=== PATIENT | female | born 1940 | race Caucasian/White ===

== ENCOUNTER 2019-03-12 16:52 | Inpatient (IN) | payer MEDICARE, OTHER ==
[~2019-03-12] VITALS: Ht 165.1 cm; Wt 68.9 kg
--- NOTE | 2019-03-12 17:00 | NUR ---
PT PRESENTED TO THE ER WITH A C/O LEFT SIDED CHEST PRESSURE. PT IS AA&O X4. PT'S IS AT THE BEDSIDE.
[2019-03-12] MEDS ORDERED: ASPIRIN 81 MG TAB.CHEW PO ONE (17:30)
[2019-03-12] MEDS ORDERED: LORAZEPAM 0.5 MG TABLET PO ONE (17:30)
[2019-03-12] MEDS ORDERED: KETOROLAC TROMETHAMINE INJ 30 MG/ML VIAL IV ONE (17:30)
--- NOTE | 2019-03-12 17:37 | NUR ---
CALLED FOR BED, TURNED IN MOVE SHEET
[2019-03-12] MEDS ORDERED: KETOROLAC TROMETHAMINE 15 MG/ML VIAL ONE (17:50)
--- NOTE | 2019-03-12 17:50 | NUR ---
PT REFUSED ALL MEDICATION AT THIS TIME. PT DENIES CP AT THIS TIME. IS AWARE.
[2019-03-12] MEDS ORDERED: ASPIRIN 81 MG TAB.CHEW ONE (17:51)
[2019-03-12] MEDS ORDERED: LORAZEPAM 0.5 MG TABLET ONE (17:51)
[2019-03-12] MEDS ORDERED: ASPI-1169 PO (18:10)
[2019-03-12] MEDS ORDERED: SIMV20TA6 PO (18:10)
[2019-03-12] MEDS ORDERED: CHOL200026 PO (18:10)
[2019-03-12] MEDS ORDERED: LEVO112T2 PO (18:10)
[2019-03-12 18:21] LABS: BASOPHILS # (AUTO) 0.1 /CMM (0.0-0.2); BASOPHILS % (AUTO) 1.2 % (0.0-2.0); EOSINOPHILS % (AUTO) 0.8 % (0.0-6.0); HEMATOCRIT 44 % (33-45); HEMOGLOBIN 14.6 g/dL (11.5-14.8); LYMPHOCYTES # (AUTO) 1.9 /CMM (0.8-4.8); LYMPHOCYTES % (AUTO) 23.5 % (20.0-44.0); MEAN CORPUSCULAR HGB CONC 33 g/dl (31.0-36.0); MEAN CORPUSCULAR VOLUME 87 fL (82-100); MONOCYTES # (AUTO) 0.5 /CMM (0.1-1.30); NEUTROPHILS # (AUTO) 5.7 /CMM (1.8-8.9); NEUTROPHILS % (AUTO) 68.5 % (43.0-81.0); PLATELET COUNT (AUTO) 200 /CMM (150-450); RED BLOOD CELL COUNT(AUTO) 5.04 MIL/uL (4.0-5.2); WHITE BLOOD COUNT (AUTO) 8.3 K/uL (4.3-11.0)
[2019-03-12 18:43] LABS: CALCIUM, SERUM 9.2 mg/dL (8.5-10.1); CARBON DIOXIDE 21 mmol/L (21-32); CHLORIDE 105 mmol/L (98-107); CREATININE 0.9 mg/dL (0.6-1.3); GLUCOSE 90 mg/dL (74-106); POTASSIUM 4.5 mmol/L (3.5-5.1); SODIUM SERUM 140 mmol/L (136-145); UREA NITROGEN, BLOOD 21 mg/dL (7-18)
[2019-03-12 18:49] LABS: ALANINE AMINOTRANSFERASE 22 U/L (12-78); ALBUMIN 3.9 g/dL (3.4-5.0); ALKALINE PHOSPHATASE 88 U/L (46-116); ASPARTATE AMINOTRANSFERASE 29 U/L (15-37); BILIRUBIN,TOTAL 0.5 mg/dL (0.2-1.0); LIPASE 102 U/L (73-393); TOTAL PROTEIN, SERUM 7.6 g/dL (6.4-8.2)
[2019-03-12] MEDS ORDERED: ZOLPIDEM TARTRATE 5 MG TABLET PO PRN ×2 (19:00→20:15)
[2019-03-12] MEDS ORDERED: MAGNESIUM HYDROXIDE 30 ML UDC PO PRN ×2 (19:00→20:15)
[2019-03-12] MEDS ORDERED: ONDANSETRON HCL/PF 4 MG/2 ML VIAL IVP PRN ×2 (19:00→20:15)
[2019-03-12] MEDS ORDERED: MORPHINE SULFATE INJ 2 MG/ML DISP.SYRIN IV PRN ×2 (19:00→20:15)
[2019-03-12] MEDS ORDERED: HYDROCODONE/APAP 5/325MG 1 EACH TABLET PO PRN ×2 (19:00→20:15)
[2019-03-12] MEDS ORDERED: Z GUARD REMEDY 2 OZ OINT TP PRN ×2 (19:00→20:15)
[2019-03-12] MEDS ORDERED: MAG HYDROX/AL HYDROX/SIMETH 30 ML UDC PO PRN ×2 (19:00→20:15)
[2019-03-12] MEDS ORDERED: ACETAMINOPHEN 325 MG TABLET PO PRN ×2 (19:00→20:15)
[2019-03-12] MEDS ORDERED: NITROGLYCERIN 0.4 MG/TAB BOTTLE SL PRN ×2 (19:00→20:15)
--- NOTE | 2019-03-12 19:29 | NUR ---
PT AMBULATED TO THE BATHROOM WITH A STEADY GAIT. VSS.
--- NOTE | 2019-03-12 19:33 | NUR ---
TELE BED 116-2
--- NOTE | 2019-03-12 19:57 | NUR ---
CALLED REPORT TO DECORATING CONSULTANT.
[2019-03-12 20:00] VITALS: BP 142/76
[2019-03-12 20:40] VITALS: BP 142/76
--- NOTE | 2019-03-12 21:00 | NUR ---
RN/TELE ADMISSION NOTES: RECEIVED PT. IN [facility] W/ FROM [facility] PT. IS A/O X 4. VERBALLY RESPONSIVE. ABLE TO MAKE NEEDS KNOWN. DENIES ANY C/O CHEST PAIN OR SOB AT PRESENT. ON TELE MONITOR W/ SR. PT. IS CONTINENT OF B/B. SKIN INTACT. HL ON RAC G 24 PATENT AND INTACT W/ NO S/S OF INFECTION/INFILTRATION NOTED. BED LOCKED AND IN LOW POSITION. CALL LIGHT W/ REACH. WILL CONTINUE TO MONITOR.
[2019-03-12] MEDS ORDERED: SIMVASTATIN 20 MG TABLET PO SCH ×2 (22:00)
[2019-03-13] VITALS: BP 114/51
[2019-03-13 04:00] VITALS: BP 114/59
[2019-03-13 06:22] LABS: BASOPHILS % (AUTO) 0.7 % (0.0-2.0); EOSINOPHILS % (AUTO) 2.9 % (0.0-6.0); HEMATOCRIT 39 % (33-45); HEMOGLOBIN 12.8 g/dL (11.5-14.8); LYMPHOCYTES # (AUTO) 2.2 /CMM (0.8-4.8); LYMPHOCYTES % (AUTO) 35.9 % (20.0-44.0); MEAN CORPUSCULAR HGB CONC 33 g/dl (31.0-36.0); MEAN CORPUSCULAR VOLUME 86 fL (82-100); MONOCYTES # (AUTO) 0.4 /CMM (0.1-1.30); MONOCYTES % (AUTO) 7.3 % (2.0-12.0); NEUTROPHILS # (AUTO) 3.2 /CMM (1.8-8.9); NEUTROPHILS % (AUTO) 53.2 % (43.0-81.0); PLATELET COUNT (AUTO) 184 /CMM (150-450); RED BLOOD CELL COUNT(AUTO) 4.51 MIL/uL (4.0-5.2)
[2019-03-13 06:58] LABS: B-TYPE NATRIURETIC PEPTIDE 67 PG/ML (0-125); CALCIUM, SERUM 8.7 mg/dL (8.5-10.1); CARBON DIOXIDE 26 mmol/L (21-32); CHLORIDE 108 mmol/L (98-107); CREATININE 0.9 mg/dL (0.6-1.3); GLUCOSE 93 mg/dL (74-106); PHOSPHORUS 3.8 mg/dL (2.5-4.9); POTASSIUM 3.7 mmol/L (3.5-5.1); SODIUM SERUM 142 mmol/L (136-145); UREA NITROGEN, BLOOD 25 mg/dL (7-18)
[2019-03-13 07:03] LABS: CHOLESTEROL 126 mg/dL (<200); HDL CHOLESTEROL 72 mg/dL (40-60); LDL 50 mg/dL (0-99); THYROID STIMULATING HORMONE 6.884 uIU/mL (0.358-3.74); TRIGLYCERIDES 69 mg/dL (30-150)
--- NOTE | 2019-03-13 07:10 | NUR ---
RN/TELE NOTES: REPORT GIVEN TO NEXT SHIFT NURSE FOR JAMILAH.
[2019-03-13] MEDS ORDERED: LEVOTHYROXINE SODIUM 112 MCG TABLET PO SCH ×2 (07:30)
--- NOTE | 2019-03-13 07:30 | NUR ---
ROAD WORKER AM NOTES: RECEIVED PT. IN BED, AAO X 4, ON ROOM AIR, NOT IN ANY DISTRESS, NO SOB, SINUS RHYTHM HR 88 ON MONITOR, DENIES ANY PAIN OR DISCOMFORT, RAC G 24 FLUSHES WELL, SITE CLEAR, AMBULATORY, BRP, SKIN INTACT. CARDIAC DIET, BED LOCKED AND IN LOW POSITION. CALL LIGHT W/ IN REACH. WILL CONTINUE TO MONITOR.
[2019-03-13 08:00] VITALS: BP 137/65
[2019-03-13] MEDS ORDERED: CHOLECALCIFEROL 1,000 UNIT TABLET (VIT D3) PO SCH ×2 (09:00)
[2019-03-13] MEDS ORDERED: ASPIRIN 81 MG TAB.CHEW PO SCH ×2 (09:00)
--- NOTE | 2019-03-13 09:30 | NUR ---
FUR IRONER NOTES DUE MEDS GIVEN
--- NOTE | 2019-03-13 09:42 | NUR ---
MS RN NOTES DC TELEMETRY PER DR. OCONNELL
--- NOTE | 2019-03-13 13:10 | NUR ---
RN NOTES PT DISCHARGED TO HOME TODAY PER MD IN STABLE CONDITION. PROVIDED DC INSTRUCTIONS, MED RECON LIST AND HEALTH TEACHINGS. PATIENT TO FOLLOW UP WITH PCP IN 1-2 WEEKS AND WILL MAKE OWN APPOINTMENT. RAC IV ACCESS REMOVED, PRESSURE APPLIED, NO BLEEDING, DRESSING IN PLACE. ALL BELONGINGS CHECKED AND RETURNED, ALL PAPER WORKS SIGNED, ACCOMPANIED BY LOUIS FOLEY TO LOBBY VIA WHEELCHAIR AND WILL GO HOME VIA PRIVATE CAR BY .
== END 2019-03-13 14:17 | disposition home or self-care (01) | DRG 880 ==
LOC: ER 16:52 → TELE1 20:26 → MEDSG1 03-13 11:28
DX: F41.9 Anxiety disorder, unspecified (principal); F43.9 Reaction to severe stress, unspecified; E78.5 Hyperlipidemia, unspecified; E03.9 Hypothyroidism, unspecified; I10 Essential (primary) hypertension; H81.09 Meniere's disease, unspecified ear; E55.9 Vitamin D deficiency, unspecified; Z87.891 Personal history of nicotine dependence; Z86.718 Personal history of other venous thrombosis and embolism; Z79.82 Long term (current) use of aspirin; Z79.899 Other long term (current) drug therapy
CPT/HCPCS: 36415; 71045-TC; 80048-TC; 80061-TC; 80076-TC; 83690-TC; 83735-TC; 83880; 84100-TC; 84443-TC; 84484-TC; 85025-TC; 87081-TC; G0378; J1885

== ENCOUNTER 2025-04-24 23:05 | Inpatient (IN) | payer BC, MEDICARE, OTHER ==
[~2025-04-24] VITALS: Ht 152.4 cm; Wt 63.5 kg
[~2025-04-24 23:05] MED LIST: ASPI-1169 PO; CHOL200026 PO; LEVO112T2 PO; SIMV-46 PO
[2025-04-24] MEDS ORDERED: ONDANSETRON HCL/PF 4 MG/2 ML VIAL ONE (23:26)
[2025-04-24] MEDS: IV NS 0.9% 500 ML BAG IV ONE (23:41)
[2025-04-24] MEDS: ONDANSETRON HCL/PF 4 MG/2 ML VIAL IVP ONE (23:41)
[2025-04-24 23:49] LABS: BASOPHILS % (AUTO) 0.6 % (0.0-2.0); EOSINOPHILS # (AUTO) 0.1 K/uL (0.0-0.7); EOSINOPHILS % (AUTO) 1.2 % (0.0-6.0); HEMATOCRIT 44 % (33-45); HEMOGLOBIN 14.5 g/dL (11.5-14.8); LYMPHOCYTES # (AUTO) 1.7 K/uL (0.8-4.8); LYMPHOCYTES % (AUTO) 24.4 % (20.0-44.0); MEAN CORPUSCULAR HEMOGLOBIN 29 PG (26.0-33.0); MEAN CORPUSCULAR HGB CONC 33 g/dl (31.0-36.0); MEAN CORPUSCULAR VOLUME 86 fL (82-100); MONOCYTES # (AUTO) 0.4 K/uL (0.1-1.30); NEUTROPHILS # (AUTO) 4.6 K/uL (1.8-8.9); NEUTROPHILS % (AUTO) 67.8 % (43.0-81.0); PLATELET COUNT (AUTO) 194 K/uL (150-450); RED BLOOD CELL COUNT(AUTO) 5.08 MIL/uL (4.0-5.2); RED CELL DISTRIBUTION WIDTH 14.2 % (11.5-15.0); WHITE BLOOD COUNT (AUTO) 6.8 K/uL (4.3-11.0)
[2025-04-25] MEDS ORDERED: MORPHINE SULFATE INJ 2 MG/ML DISP.SYRIN ONE ×3 (00:02→03:18)
[2025-04-25] MEDS: MORPHINE SULFATE INJ 2 MG/ML DISP.SYRIN IV ONE ×4 (00:06→05:33)
[2025-04-25 00:09] LABS: CALCIUM, SERUM 9.8 mg/dL (8.5-10.1); CARBON DIOXIDE 23 mmol/L (21-32); CHLORIDE 105 mmol/L (98-107); CREATININE 0.9 mg/dL (0.6-1.3); GLUCOSE 117 mg/dL (74-106); POTASSIUM 3.8 mmol/L (3.5-5.1); SODIUM SERUM 140 mmol/L (136-145); UREA NITROGEN, BLOOD 14 mg/dL (7-18)
[2025-04-25 00:15] LABS: ALANINE AMINOTRANSFERASE 10 U/L (12-78); ALBUMIN 4.4 g/dL (3.4-5.0); ALKALINE PHOSPHATASE 93 U/L (46-116); ASPARTATE AMINOTRANSFERASE 21 U/L (15-37); BILIRUBIN,DIRECT 0.1 mg/dL (0.0-0.2); BILIRUBIN,TOTAL 0.5 mg/dL (0.2-1.0); LIPASE 16 U/L (16-77); TOTAL PROTEIN, SERUM 7.6 g/dL (6.4-8.2)
[2025-04-25 03:44] LABS: APPEARANCE,URINE CLEAR (CLEAR); BILIRUBIN,URINE NEGATIVE (NEGATIVE); BLOOD, URINE 2+ Ery/uL (NEGATIVE); COLOR,URINE YELLOW (YELLOW); KETONES,URINE 1+ mg/dL (NEGATIVE); LEUKOCYTE ESTERASE ,URINE 1+ (NEGATIVE); NITRITE, URINE NEGATIVE (NEGATIVE); PROTEIN,URINE NEGATIVE (NEGATIVE); UGLUCOSE NEGATIVE (NEGATIVE); UROBILINOGEN,URINE 0.2 EU/dL (0.2)
[2025-04-25 03:52] LABS: ADD URINE CULTURE YES; BACTERIA,URINE None seen /HPF (None Seen)
[2025-04-25 03:53] LABS: SQUAMOUS EPITHELIAL CELL,UR Rare /HPF (None Seen)
[2025-04-25] MEDS ORDERED: MORPHINE SULFATE INJ 4 MG/ML DISP.SYRIN ONE ×2 (05:29→08:18)
[2025-04-25] MEDS ORDERED: MAG HYDROX/AL HYDROX/SIMETH 30 ML UDC PO PRN (06:00)
[2025-04-25] MEDS: KETOROLAC TROMETHAMINE 15 MG/ML VIAL IV ONE (06:00)
[2025-04-25] MEDS ORDERED: CEFTRIAXONE 1 G in IV D5W 50 ML IV SCH (06:00)
[2025-04-25] MEDS ORDERED: MAGNESIUM HYDROXIDE 30 ML UDC PO PRN (06:00)
[2025-04-25] MEDS ORDERED: IV LR 1000 ML 1,000 ML IV SCH (06:00)
[2025-04-25] MEDS ORDERED: ACETAMINOPHEN 325 MG TABLET PO PRN (06:00)
[2025-04-25] MEDS ORDERED: ONDANSETRON HCL/PF 4 MG/2 ML VIAL IVP PRN (06:00)
[2025-04-25 06:17] LABS: BASOPHILS % (AUTO) 0.7 % (0.0-2.0); EOSINOPHILS % (AUTO) 0.4 % (0.0-6.0); HEMATOCRIT 43 % (33-45); HEMOGLOBIN 14.1 g/dL (11.5-14.8); LYMPHOCYTES # (AUTO) 1.3 K/uL (0.8-4.8); LYMPHOCYTES % (AUTO) 19.3 % (20.0-44.0); MEAN CORPUSCULAR HEMOGLOBIN 28 PG (26.0-33.0); MEAN CORPUSCULAR HGB CONC 33 g/dl (31.0-36.0); MEAN CORPUSCULAR VOLUME 85 fL (82-100); MONOCYTES # (AUTO) 0.4 K/uL (0.1-1.30); MONOCYTES % (AUTO) 5.2 % (2.0-12.0); NEUTROPHILS % (AUTO) 74.4 % (43.0-81.0); PLATELET COUNT (AUTO) 201 K/uL (150-450); RED BLOOD CELL COUNT(AUTO) 5.01 MIL/uL (4.0-5.2); WHITE BLOOD COUNT (AUTO) 6.8 K/uL (4.3-11.0)
[2025-04-25 06:33] LABS: CALCIUM, SERUM 9.5 mg/dL (8.5-10.1); CARBON DIOXIDE 26 mmol/L (21-32); CHLORIDE 106 mmol/L (98-107); CREATININE 0.8 mg/dL (0.6-1.3); GLUCOSE 107 mg/dL (74-106); MAGNESIUM 2.1 mg/dL (1.8-2.4); PHOSPHORUS 3.4 mg/dL (2.5-4.9); POTASSIUM 3.6 mmol/L (3.5-5.1); SODIUM SERUM 141 mmol/L (136-145); UREA NITROGEN, BLOOD 14 mg/dL (7-18)
[2025-04-25] MEDS: MORPHINE SULFATE INJ 2 MG/ML DISP.SYRIN IV PRN (08:21)
[2025-04-25 08:30] VITALS: BP 157/60; TEMP 98.2; O2SAT 99
[2025-04-25] MEDS: PANTOPRAZOLE 40 MG VIAL IV SCH (09:00)
[2025-04-25] MEDS ORDERED: CALC200T42 PO (11:19)
[2025-04-25] MEDS ORDERED: CHOL500062 PO (11:19)
[2025-04-25] MEDS ORDERED: LEVO100T9 PO (11:19)
[2025-04-25] MEDS: METHOCARBAMOL (750MG) 750 MG TABLET PO SCH (14:07)
[2025-04-25] MEDS: predniSONE 20 MG TABLET PO SCH (14:07)
[2025-04-25] MEDS: PREGABALIN 25 MG CAPSULE PO SCH (14:07)
[2025-04-25] MEDS: ENOXAPARIN SODIUM 40 MG/0.4 ML DISP.SYRIN SQ SCH (14:11)
[2025-04-25 16:00] VITALS: BP 130/60; TEMP 97.7; O2SAT 97
[2025-04-25 20:00] VITALS: BP 128/68; TEMP 99.5; O2SAT 93
[2025-04-25] MEDS: SIMVASTATIN 20 MG TABLET PO SCH (21:36)
[2025-04-26 05:00] VITALS: BP 134/64; TEMP 98.6; O2SAT 93
[2025-04-26 06:45] LABS: BASOPHILS % (AUTO) 0.4 % (0.0-2.0); HEMATOCRIT 47 % (33-45); HEMOGLOBIN 15.6 g/dL (11.5-14.8); LYMPHOCYTES # (AUTO) 1.4 K/uL (0.8-4.8); LYMPHOCYTES % (AUTO) 14.5 % (20.0-44.0); MEAN CORPUSCULAR HEMOGLOBIN 28 PG (26.0-33.0); MEAN CORPUSCULAR HGB CONC 33 g/dl (31.0-36.0); MEAN CORPUSCULAR VOLUME 85 fL (82-100); MONOCYTES # (AUTO) 0.5 K/uL (0.1-1.30); NEUTROPHILS # (AUTO) 7.5 K/uL (1.8-8.9); NEUTROPHILS % (AUTO) 80.1 % (43.0-81.0); PLATELET COUNT (AUTO) 209 K/uL (150-450); RED BLOOD CELL COUNT(AUTO) 5.52 MIL/uL (4.0-5.2); WHITE BLOOD COUNT (AUTO) 9.4 K/uL (4.3-11.0)
[2025-04-26 08:00] VITALS: BP 126/60; TEMP 97.5; O2SAT 97
[2025-04-26] MEDS: LEVOTHYROXINE SODIUM 100 MCG TABLET PO SCH (08:30)
[2025-04-26] MEDS: ASPIRIN 81 MG TAB.CHEW PO SCH (08:39)
[2025-04-26] MEDS ORDERED: Pregabalin PO (10:59)
[2025-04-26] MEDS ORDERED: METH4TAB3 PO (10:59)
[2025-04-26] MEDS ORDERED: METH-649 PO (10:59)
[2025-04-26] MEDS ORDERED: HYDR-3972 PO (10:59)
[2025-04-26] MEDS ORDERED: PREG50CA PO (11:02)
[2025-04-26 11:27] LABS: CREATININE 1.2 mg/dL (0.6-1.3); MAGNESIUM 2.3 mg/dL (1.8-2.4); PHOSPHORUS 6.4 mg/dL (2.5-4.9); POTASSIUM 3.7 mmol/L (3.5-5.1)
[2025-04-26 12:19] LABS: ALBUMIN 3.1 g/dL (3.4-5.0); BILIRUBIN,DIRECT 0.1 mg/dL (0.0-0.2); BILIRUBIN,TOTAL 0.4 mg/dL (0.2-1.0); TOTAL PROTEIN, SERUM 7.4 g/dL (6.4-8.2)
[2025-04-27] MEDS ORDERED: PANTOPRAZOLE 40 MG TABLET.DR PO SCH (09:00)
== END 2025-04-26 14:15 | disposition home health service (06) | DRG 552 ==
LOC: ER 23:10 → TELE 04-25 08:16 → MEDSG1 04-25 08:22 → MED 04-25 08:29 → MEDSG1 04-25 12:03
PROVIDERS: ADMIT Nurse Practitioner Family; ATTEND Nurse Practitioner Family
DX: M54.32 Sciatica, left side (principal); H81.09 Meniere's disease, unspecified ear; E05.00 Thyrotoxicosis with diffuse goiter without thyrotoxic crisis or storm; E03.9 Hypothyroidism, unspecified; E78.5 Hyperlipidemia, unspecified; Z87.891 Personal history of nicotine dependence; Z79.82 Long term (current) use of aspirin; Z79.890 Hormone replacement therapy; K80.20 Calculus of gallbladder without cholecystitis without obstruction; K82.8 Other specified diseases of gallbladder; Z79.899 Other long term (current) drug therapy; Z87.39 Personal history of other diseases of the musculoskeletal system and connective tissue
CPT/HCPCS: 36415; 71045-TC; 76700-TC; 80048-TC; 80076-TC; 81001; 83690-TC; 83735-TC; 84100-TC; 84443-TC; 84484-TC; 85025-TC; 87086-TC; 97116-TC; 97530-TC; G0378; J1650; J2270; J2405; J2470; J7040